=== PATIENT | male | born 1980 | race Caucasian/White ===

== ENCOUNTER 2020-09-09 22:19 | Emergency (ER) | payer SELFPAY ==
[~2020-09-09] VITALS: Ht 188 cm; Wt 93.5 kg
[2020-09-09] MEDS ORDERED: IV RINGERS SOLUTION,LACTATED 1,000 ML IV SCH (22:27)
[2020-09-09] MEDS ORDERED: FAMOTIDINE 20 MG/2 ML VIAL IVP ONE (22:30)
[2020-09-09] MEDS ORDERED: ONDANSETRON PF 4 MG/2 ML VIAL. IVP ONE (22:30)
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
[2020-09-09 23:21] LABS: BASO % 1 % (0-3); EOS # 0.1 x10^3/uL (0.0-0.7); EOS % 1 % (0-3); HEMATOCRIT 33.8 % (39.0-53.0); HEMOGLOBIN 11.1 g/dL (13.0-17.5); LYMPH # 0.8 x10^3/uL (1.0-4.8); LYMPH % 15 % (24-48); MEAN CORPUSCULAR HEMOGLOBIN 31 pg (25-35); MEAN CORPUSCULAR HGB CONC 33 g/dL (31-37); MEAN CORPUSCULAR VOLUME 95 fL (79-100); MONO # 0.4 x10^3/uL (0.0-1.1); MONO % 7 % (0-9); NEUT # 4.2 x10^3uL (1.8-7.7); NEUT % 76 % (31-73); PLATELET COUNT 166 x10^3/uL (140-400); RED BLOOD COUNT 3.57 x10^6/uL (4.30-5.70); RED CELL DISTRIBUTION WIDTH 14.6 % (11.5-14.5); WHITE BLOOD COUNT 5.6 x10^3/uL (4.0-11.0)
[2020-09-09 23:33] LABS: CALCIUM 8.4 mg/dL (8.5-10.1); CREATININE 1.4 mg/dL (0.7-1.3); GFR 56.7; POTASSIUM 4.2 mmol/L (3.5-5.1)
[2020-09-09 23:40] LABS: ALBUMIN 3.4 g/dL (3.4-5.0); DIRECT BILIRUBIN 0.1 mg/dL (0.0-0.2); TOTAL BILIRUBIN 0.1 mg/dL (0.2-1.0); TOTAL PROTEIN 6.2 g/dL (6.4-8.2)
[2020-09-10 00:25] LABS: BACTERIA,URINE 0 /HPF (0-FEW); BILIRUBIN,URINE NEG (NEG); CLARITY,URINE CLEAR; COLOR,URINE YELLOW; GLUCOSE,URINE NEG (NEG); NITRITE,URINE NEG (NEG); RBC,URINE 0 /HPF (0-2); SQUAMOUS EPITHELIAL CELL,UR OCC /LPF; UROBILINOGEN,URINE 0.2 mg/dL (0.2 mg/dL); WBC,URINE OCC /HPF (0-4)
[2020-09-10 00:37] LABS: BARBITURATES NEG (NEG); BENZODIAZEPINES NEG (NEG); CANNABINOIDS NEG (NEG); COCAINE NEG (NEG); METHADONE NEG (NEG); OPIATES NEG (NEG); PHENCYCLIDINE NEG (NEG)
[2020-09-10 00:38] LABS: AMPHETAMINE/METHAMPHETAMINE NEG (NEG)
--- NOTE | 2020-09-10 00:50 | RAD ---
EXAM: 2 VIEW ABDOMEN WITH ONE VIEW CHEST. HISTORY: Abdominal pain, nausea and vomiting. Rectal foreign body. COMPARISON: None. FINDINGS: A frontal view of the chest and supine/upright views of the abdomen are obtained. There are no confluent infiltrates. There is no pneumothorax or pleural effusion. The heart is not enlarged. Two tubular objects within the midline pelvis measure 7.3 x 2.2 cm. There is no pneumoperitoneum. There are no distended small bowel loops or significant air-fluid levels. There is gas distally. L4-5 disc arthroplasty changes are noted. IMPRESSION: 1. No confluent infiltrates. 2. Two 7 x 2 cm rectal foreign bodies. No evidence of perforation. Electronically signed by: Carrie Azul MD (09/10/2020 12:48 AM) [facility]
[2020-09-10] MEDS ORDERED: diphenhydrAMINE 50 MG/ML VIAL ONE (01:28)
[2020-09-10 01:59] VITALS: BP 128/81
[2020-09-10] MEDS ORDERED: diphenhydrAMINE 50 MG/ML VIAL IVP ONE (02:00)
== END 2020-09-10 02:12 | disposition short-term general hospital (02) ==
LOC: ER 22:19
DX: T18.5XXA Foreign body in anus and rectum, initial encounter (principal); Z88.5 Allergy status to narcotic agent; Z88.8 Allergy status to other drugs, medicaments and biological substances; X58.XXXA Exposure to other specified factors, initial encounter; Y93.89 Activity, other specified; Y92.89 Other specified places as the place of occurrence of the external cause; Y99.8 Other external cause status
CPT/HCPCS: 36415; 74022; 80048; 80076; 80307; 81001; 82150; 83690; 84484; 85025; 85610; 85730; 96361; 96372; 96374; 96375; 99285; J1200; J2405; J3010; J3490; J7120